=== PATIENT | male | born 1985 | race Caucasian/White ===

== ENCOUNTER 2020-06-27 08:00 | Emergency (ER) | payer OTHER, SELFPAY ==
[2020-06-27 08:05] VITALS: BP 149/86; PULSE 70; RESP 18; TEMP 36.9; O2SAT 99
--- NOTE | 2020-06-27 08:27 | ED.EYEPROB ---
HPI - Eye Problem General Chief complaint: Eye Problems Stated complaint: piece of metal in eye Time Seen by Provider: 06/27/20 08:06 Source: patient Mode of arrival: ambulatory Limitations: no limitations History of Present Illness HPI Narrative: Patient is 34 years old white male presents with foreign body in the right eye yesterday afternoon while grinding metal. His PICC flew and went on to his right eye. Patient denies any visual abnormality, patient was able to get the foreign body out of his eye using a needle at home. Patient is telling me he have done that numerous of time in the past. Patient denies any redness, discharge or pain. Related Data Home Medications Medication Instructions Recorded Confirmed Wellbutrin 06/27/20 amlodipine 06/27/20 06/27/20 atorvastatin 06/27/20 hydrochlorothiazide 06/27/20 metoprolol succinate 06/27/20 06/27/20 Allergies Allergy/AdvReac Type Severity Reaction Status Date / Time Penicillins Allergy Swelling Verified 06/27/20 08:40 Review of Systems Review of Systems: Narrative: CONSTITUTIONAL: Denies fever, chills, or sweats. EYES: Denies visual changes, redness, or discharge. ENT: Denies rhinorrhea, congestion, sore throat, or otalgia. CARDIOVASCULAR: Denies chest pain, palpitations, or edema. RESPIRATORY: Denies cough or dyspnea. GASTROINTESTINAL: Denies abdominal pain, nausea, vomiting, or diarrhea. GENITOURINARY: Denies dysuria or hematuria. SKIN: Denies rash or itching. MUSCULOSKELETAL: Denies back pain, joint pain, or myalgia. NEUROLOGIC: Denies headache, numbness, or weakness. PSYCHIATRIC: Denies anxiety or depression. Exam Narrative: Exam Narrative: General appearance: Well-developed, well-nourished Skin: Normal color Eyes: Clear conjunctiva, scratch-like lesion at the center of the cornea Chest and respiratory: Airway patent, no respiratory distress, no accessory muscle use Heart: Regular rate/rhythm Course Course Emergency Course: Stable Vital Signs Vital signs: Vital Signs Temperature 36.9 C 06/27/20 08:05 Pulse Rate 70 06/27/20 08:05 Respiratory Rate 18 06/27/20 08:05 Blood Pressure 149/86 H 06/27/20 08:05 Pulse Oximetry 99 06/27/20 08:05 Temperature 36.9 C 06/27/20 08:05 Pulse Rate 70 06/27/20 08:05 Respiratory Rate 18 06/27/20 08:05 Blood Pressure 149/86 H 06/27/20 08:05 Pulse Oximetry 99 06/27/20 08:05 Procedures FB Removal Eye Foreign Body #1: Foreign Body Removal Date: 06/27/20 Foreign Body Removal Time: 08:30 Time Out performed: Yes (15) Location: eye (R) Topical anesthetic used: tetracaine Foreign body: other (Patient remove the foreign body by a needle at home, currently have corneal scratch) Evidence of corneal penetration: No Procedure performed under: direct visualization with magnification Post-procedure medication: ophthalmic antibiotic Patient tolerated procedure: other (No foreign body was identified, using fluorescent dye, showed central corneal scratch, 2 mm.) MDM - Eye Problem MDM Narrative Medical decision making narrative: Corneal foreign body/abrasion Critical Care Time Critical Care Time Critical Care Time: No Discharge Plan Discharge Clinical Impression: Corneal abrasion Qualifiers: Encounter type: subsequent encounter Laterality: right Qualified Code(s): S05.01XD - Injury of conjunctiva and corneal abrasion without foreign body, right eye, subsequent encounter Patient Disposition: Home, Self-Care Condition: Stable Instructions: Corneal Abrasion (ED) Additional Instructions: Return if symptoms are worsening , call [facility] for appointment for appointment, take Tylenol as as needed for aches and pain, continue home medications. Pre
== END 2020-06-27 09:10 | disposition home or self-care (01) ==
PROVIDERS: Emergency Provider Emergency Medicine; PCP Family Medicine
DX: S05.01XA Injury of conjunctiva and corneal abrasion without foreign body, right eye, initial encounter (principal); W22.8XXA Striking against or struck by other objects, initial encounter
CPT/HCPCS: 99283; A9270